=== PATIENT | female | born 1960 | race Hispanic/Latino ===

== ENCOUNTER 2021-05-12 13:11 | Outpatient (CLI) | payer OTHER | END 2021-05-12 13:12 | disposition home or self-care (01) | LOC: SCSMRI 13:11 | PROVIDERS: ATTEND Orthopaedic Surgery | DX: M23.92 Unspecified internal derangement of left knee (principal); M22.42 Chondromalacia patellae, left knee; M71.22 Synovial cyst of popliteal space [Baker], left knee; M25.762 Osteophyte, left knee; Z98.890 Other specified postprocedural states ==

== ENCOUNTER 2022-10-10 14:13 | Outpatient (CLI) | payer BC | END 2022-10-10 14:14 | disposition home or self-care (01) | LOC: SCSMRI 14:13 | PROVIDERS: ATTEND Otolaryngology Plastic Surgery within the Head & Neck | DX: H90.5 Unspecified sensorineural hearing loss (principal) | CPT/HCPCS: 70553; 82565 ==